=== PATIENT | male | born 1965 | race Caucasian/White ===

== ENCOUNTER 2020-10-26 16:57 | Emergency (ER) | payer MEDICARE, SELFPAY ==
[2020-10-26 17:18] VITALS: BP 173/71; PULSE 105; RESP 22; TEMP 36.3; O2SAT 96
--- NOTE | 2020-10-26 18:16 | ED.GENADULT ---
HPI - General Adult General Chief complaint: Skin/Abscess/Foreign Body Stated complaint: left leg possible wound infection Source: patient and family Mode of arrival: ambulatory Limitations: no limitations History of Present Illness HPI narrative: Patient presents for evaluation of nonhealing wound to the anterolateral aspect of the left lower leg for the last 2 weeks. He indicates that he bumped his leg which was the initial cause of the wound. He has been applying triple antibiotic ointment without much improvement. He has some associated redness that he attributes to application of a Band-Aid. He is a fairly significant past medical history including CVA, extensive DVT formation, hypertension, diabetes, hyperlipidemia, factor V Leyden deficiency. He states he had a thrombectomy in the past and is currently anticoagulated with Eliquis, with which he is compliant. He indicates he uses 65 units of Lantus insulin once daily and 8 units of NovoLog 3 times a day. He has been in contact with his primary care doctor within the last 2 weeks for a virtual visit. He states his BS at home have been 110-140. He smokes 1/2 ppd. No additional complaints or concerns. Related Data Home Medications Medication Instructions Recorded Confirmed apixaban [Eliquis] 5 mg PO BID 10/26/20 10/26/20 citalopram 20 mg PO DAILY 10/26/20 10/26/20 desmopressin 0.2 mg PO BID 10/26/20 10/26/20 hydroxyzine HCl 25 mg PO BID PRN 10/26/20 10/26/20 insulin aspart U-100 [Novolog 8 unit SUBCUT TID 10/26/20 10/26/20 Flexpen U-100 Insulin] insulin glargine [Lantus U-100 65 unit SUBCUT QPM 10/26/20 10/26/20 Insulin] metformin 750 mg PO BID 10/26/20 10/26/20 mirabegron [Myrbetriq] 50 mg PO DAILY 10/26/20 10/26/20 rosuvastatin 10 mg PO DAILY 10/26/20 10/26/20 tamsulosin 0.4 mg PO DAILY 10/26/20 10/26/20 Allergies Allergy/AdvReac Type Severity Reaction Status Date / Time Penicillins Allergy Intermediate Swelling Verified 10/26/20 17:24 Review of Systems Review of Systems: Narrative: CONSTITUTIONAL: Denies fever, chills, or sweats. EYES: Denies visual changes, redness, or discharge. ENT: Denies rhinorrhea, congestion, sore throat, or otalgia. CARDIOVASCULAR: Denies chest pain, palpitations, or edema. RESPIRATORY: Denies cough or dyspnea. GASTROINTESTINAL: Denies abdominal pain, nausea, vomiting, or diarrhea. GENITOURINARY: Denies dysuria or hematuria. SKIN: Reports nonhealing wound to the anterolateral aspect of the left lower leg. Denies rash or itching. MUSCULOSKELETAL: Denies back pain, joint pain, or myalgia. NEUROLOGIC: Denies headache, numbness, dizziness, or weakness. PSYCHIATRIC: Denies anxiety or depression. [facility] Past Medical History Medical History Diabetes Factor V deficiency History of DVT (deep vein thrombosis) History of stroke Hyperlipidemia Hypertension Tobacco use Surgical History Surgical History (Reviewed 10/26/20 @ 18:21 by Nba Watson, [facility], ) H/O cystoscopy Family History Family History (Reviewed 10/26/20 @ 18:21 by Nba Watson, [facility], ) Mother No pertinent past medical history Social History Social History (Reviewed 10/26/20 @ 18:21 by Nba Watson, [facility], ) Smoking packs per day: 0.5 Smoking cigarettes per day: 10.0 Smoking status: Current every day smoker Tobacco type: cigarettes Alcohol intake: never Substance use: never Living arrangements: with family Occupation/Education: retired Gender identity (if verbalized by the patient): Male Sexual Orientation (if Verbalized by the Patient): Straight or Heterosexual Spiritual care concerns: No Exam Narrative: Exam Narrative: GENERAL: Well-appearing, well-nourished, and in no acute distress. HEAD: Normocephalic, atraumatic. EYES: PERRLA and EOMI. ENT: Nares clear, no rhinorrhea or epistaxis. Mucous membranes moist. Oropharynx without tonsillar hypertrophy exudate or other lesions. Bilateral TMs pearly short nonbulging NEC
== END 2020-10-26 18:35 | disposition home or self-care (01) ==
PROVIDERS: Emergency Provider Nurse Practitioner; PCP Family Medicine
DX: E11.622 Type 2 diabetes mellitus with other skin ulcer (principal); L97.929 Non-pressure chronic ulcer of unspecified part of left lower leg with unspecified severity; Z79.4 Long term (current) use of insulin; Z86.718 Personal history of other venous thrombosis and embolism; Z86.73 Personal history of transient ischemic attack (TIA), and cerebral infarction without residual deficits; E78.5 Hyperlipidemia, unspecified; I10 Essential (primary) hypertension; D68.2 Hereditary deficiency of other clotting factors; F17.210 Nicotine dependence, cigarettes, uncomplicated
CPT/HCPCS: 99213; G0463